=== PATIENT | female | born 1940 | race Asian ===

== ENCOUNTER 2021-08-08 15:36 | Emergency (ER) | payer OTHER ==
[~2021-08-08] VITALS: Ht 149.9 cm; Wt 40.4 kg
[2021-08-08 16:04] VITALS: BP_SYST 157
--- NOTE | 2021-08-08 16:09 | NUR ---
Patient triaged and placed in waiting room. VSS and patient appears in no acute distress at this time. Accompanied by FAMILY, awaiting available bed, and MD notified of need for MSE.
--- NOTE | 2021-08-08 16:10 | NUR ---
Dr. Gallagher to triage to assess.
--- NOTE | 2021-08-08 16:30 | NUR ---
Blood drawn per lab in [facility].
--- NOTE | 2021-08-08 16:36 | NUR ---
CT Scan completed per radiology from the lobby.
[2021-08-08 16:47] LABS: BASOPHILS % (AUTO) 0.4 % (0.0-2.0); EOSINOPHILS # (AUTO) 0.2 K/uL (0.0-0.4); EOSINOPHILS % (AUTO) 2.5 % (0.0-4.0); HEMATOCRIT 28.4 % (36-48); HEMOGLOBIN 9.8 g/dL (12.0-16.0); LYMPHOCYTES # (AUTO) 2.1 K/uL (1.0-5.5); LYMPHOCYTES % (AUTO) 23.2 % (20.5-51.5); MEAN CORPUSCULAR HEMOGLOBIN 34 pg (27-31); MEAN CORPUSCULAR HGB CONC 35 % (32-36); MEAN CORPUSCULAR VOLUME 97 fL (79.0-98.0); MONOCYTES # (AUTO) 0.5 K/uL (0.0-1.0); MONOCYTES % (AUTO) 5.8 % (1.7-9.3); NEUTROPHILS # (AUTO) 6.1 K/uL (1.8-7.7); NEUTROPHILS % (AUTO) 68.1 % (40.0-70.0); PLATELET COUNT (AUTO) 276 K/uL (130-430); RED BLOOD CELL COUNT(AUTO) 2.93 MIL/uL (4.2-6.2); RED CELL DISTRIBUTION WIDTH 14.5 % (9.0-15.0)
[2021-08-08 17:02] LABS: ANION GAP 7 (5-15); CALCIUM 9.4 mg/dL (8.4-11.0); CHLORIDE 98 mmol/L (98-107); CREATININE 1.57 mg/dL (0.55-1.30); GLUCOSE 162 mg/dL (70-99); POTASSIUM 4.6 mmol/L (3.5-5.1); SODIUM SERUM 130 mmol/L (136-145); UREA NITROGEN, BLOOD 56 mg/dL (8-21)
[2021-08-08 17:08] LABS: ALANINE AMINOTRANSFERASE 29 U/L (12-78); ALBUMIN 4.1 g/dL (3.4-4.8); ASPARTATE AMINOTRANSFERASE 19 U/L (10-37); LIPASE 497 U/L (73-393); TOTAL BILIRUBIN 0.6 mg/dL (0.0-1.0)
[2021-08-08 17:30] LABS: BILIRUBIN,URINE NEGATIVE (NEGATIVE); BLOOD, URINE NEGATIVE (NEGATIVE); CLARITY/URINE CLEAR (CLEAR); COLOR,URINE YELLOW (YELLOW); GLUCOSE,URINE NEGATIVE (NEGATIVE); KETONES,URINE NEGATIVE (NEGATIVE); LEUKOCYTE ESTERASE ,URINE TRACE (NEGATIVE); NITRITE, URINE NEGATIVE (NEGATIVE); PROTEIN URINE NEGATIVE (NEGATIVE); UROBILINOGEN,URINE 0.2 (0.2-1.0)
[2021-08-08 17:31] LABS: BACTERIA,URINE FEW /HPF (None Seen); MUCUS,URINE None Seen /LPF (None Seen); RBC,URINE NONE SEEN /HPF (0-3)
--- NOTE | 2021-08-08 18:15 | NUR ---
Pt to bed 4 for evaluation.
--- NOTE | 2021-08-08 18:20 | NUR ---
Pt AAO and ambulatory reporting chronic abdominal pain that is intermittent in nature. Pt reports that she was diagnosed with Pancreatitis yesterday and continues to feel pain. Pt reports that pain level is 8/10 on pain scale.
[2021-08-08] MEDS ORDERED: MORPHINE 4 MG INJ. 4 MG/ML VIAL IM ONE (18:30)
[2021-08-08] MEDS ORDERED: HYDR-3927 PO (18:50)
[2021-08-08] MEDS ORDERED: OMEP40CA20 PO (18:50)
[2021-08-08 19:05] VITALS: BP_SYST 157
--- NOTE | 2021-08-08 19:05 | NUR ---
Patient given written and verbal discharge instructions and verbalizes understanding. Dr. Elliott BETTENCOURT MD discussed with patient the results and treatment provided. Patient in stable condition. ID arm band removed. Rx per MD.. Patient educated on pain management and to follow up with PMD. Pain Scale 2/10. Opportunity for questions provided and answered. Medication side effect fact sheet provided.
== END 2021-08-08 19:05 | disposition home or self-care (01) ==
LOC: SED 15:36
DX: R10.13 Epigastric pain (principal); I10 Essential (primary) hypertension; E11.9 Type 2 diabetes mellitus without complications; Z88.0 Allergy status to penicillin
CPT/HCPCS: 36415; 74176; 76376; 80053; 81000; 83690; 85025; 96372; 99284; J2270

== ENCOUNTER 2021-08-18 08:56 | Observation (INO) | payer OTHER, SELFPAY ==
[~2021-08-18] VITALS: Ht 157.5 cm; Wt 36.9 kg
[~2021-08-18 08:56] MED LIST: HYDR-3927 PO; OMEP40CA20 PO
[2021-08-18 09:22] VITALS: BP_SYST 168
[2021-08-18 10:02] LABS: BASOPHILS % (AUTO) 0.3 % (0.0-2.0); EOSINOPHILS # (AUTO) 0.1 K/uL (0.0-0.4); EOSINOPHILS % (AUTO) 0.7 % (0.0-4.0); HEMATOCRIT 26.8 % (36-48); LYMPHOCYTES # (AUTO) 1.5 K/uL (1.0-5.5); LYMPHOCYTES % (AUTO) 12.7 % (20.5-51.5); MEAN CORPUSCULAR HEMOGLOBIN 33 pg (27-31); MEAN CORPUSCULAR HGB CONC 34 % (32-36); MEAN CORPUSCULAR VOLUME 99 fL (79.0-98.0); MONOCYTES # (AUTO) 0.7 K/uL (0.0-1.0); MONOCYTES % (AUTO) 5.5 % (1.7-9.3); NEUTROPHILS # (AUTO) 9.8 K/uL (1.8-7.7); NEUTROPHILS % (AUTO) 80.8 % (40.0-70.0); PLATELET COUNT (AUTO) 268 K/uL (130-430); RED BLOOD CELL COUNT(AUTO) 2.71 MIL/uL (4.2-6.2); RED CELL DISTRIBUTION WIDTH 14.7 % (9.0-15.0); WHITE BLOOD COUNT (AUTO) 12.1 K/uL (4.8-10.8)
[2021-08-18 10:16] LABS: ANION GAP 9 (5-15); CALCIUM 9.4 mg/dL (8.4-11.0); CHLORIDE 100 mmol/L (98-107); GLUCOSE 219 mg/dL (70-99); POTASSIUM 4.9 mmol/L (3.5-5.1); SODIUM SERUM 133 mmol/L (136-145); UREA NITROGEN, BLOOD 44 mg/dL (8-21)
[2021-08-18 10:21] LABS: ALANINE AMINOTRANSFERASE 21 U/L (12-78); ALBUMIN 3.7 g/dL (3.4-4.8); ASPARTATE AMINOTRANSFERASE 13 U/L (10-37); LIPASE 271 U/L (73-393); TOTAL BILIRUBIN 0.4 mg/dL (0.0-1.0)
[2021-08-18 11:34] LABS: BILIRUBIN,URINE NEGATIVE (NEGATIVE); BLOOD, URINE NEGATIVE (NEGATIVE); CLARITY/URINE CLEAR (CLEAR); COLOR,URINE YELLOW (YELLOW); GLUCOSE,URINE NEGATIVE (NEGATIVE); KETONES,URINE NEGATIVE (NEGATIVE); LEUKOCYTE ESTERASE ,URINE NEGATIVE (NEGATIVE); NITRITE, URINE NEGATIVE (NEGATIVE); PROTEIN URINE NEGATIVE (NEGATIVE); UROBILINOGEN,URINE 0.2 (0.2-1.0)
[2021-08-18] MEDS ORDERED: ASPIRIN 325 MG TABLET PO ONE (13:15)
[2021-08-18] MEDS ORDERED: HYDROcodone/ACETAMIN 5-325 MG TAB (NORCO/ VICODIN) PO PRN (13:30)
[2021-08-18] MEDS ORDERED: LORazepam 2 MG/ML VIAL IVP PRN (13:30)
[2021-08-18] MEDS ORDERED: ACETAMINOPHEN 325 MG TABLET PO PRN (13:30)
[2021-08-18] MEDS ORDERED: ONDANSETRON HCL 4 MG/2 ML VIAL IVP PRN (13:30)
[2021-08-18] MEDS ORDERED: NALOXONE HCL 0.4 MG/ML AMP (NARCAN) IVP PRN ×2 (13:30)
[2021-08-18] MEDS ORDERED: NORMAL SALINE 5 ML DISP.SYRIN IVF SCH (14:00)
[2021-08-18] MEDS ORDERED: CARV3.1246 PO (17:41)
[2021-08-18] MEDS ORDERED: LOSA100T3 PO (17:41)
[2021-08-18] MEDS ORDERED: CLOP300T14 PO (17:41)
[2021-08-18 18:10] VITALS: BP_SYST 112
[2021-08-18] MEDS: HYDROcodone/ACETAMIN 10-325 MG TAB PO PRN (21:02)
[2021-08-18] MEDS: NORMAL SALINE 5 ML DISP.SYRIN IVF SCH (21:03)
[2021-08-18 21:29] VITALS: BP_SYST 144
[2021-08-18 22:44] LABS: THYROID STIMULATING HORMONE 0.78 uIu/mL (0.36-3.74)
[2021-08-18 23:34] LABS: CHOLESTEROL 125 mg/dL (<200); HDL CHOLESTEROL 61 mg/dL (>55); LDL CHOLESTEROL 50 mg/dL (<100); TRIGLYCERIDES 110 mg/dL (30-150)
[2021-08-19 00:39] VITALS: BP_SYST 137
[2021-08-19] MEDS: NORMAL SALINE 5 ML DISP.SYRIN IVF SCH (05:56)
[2021-08-19 06:31] LABS: BASOPHILS % (AUTO) 0.2 % (0.0-2.0); EOSINOPHILS # (AUTO) 0.2 K/uL (0.0-0.4); EOSINOPHILS % (AUTO) 1.4 % (0.0-4.0); HEMATOCRIT 29.5 % (36-48); HEMOGLOBIN 9.8 g/dL (12.0-16.0); LYMPHOCYTES # (AUTO) 1.4 K/uL (1.0-5.5); LYMPHOCYTES % (AUTO) 11.6 % (20.5-51.5); MEAN CORPUSCULAR HEMOGLOBIN 33 pg (27-31); MEAN CORPUSCULAR HGB CONC 33 % (32-36); MEAN CORPUSCULAR VOLUME 99 fL (79.0-98.0); MONOCYTES # (AUTO) 0.9 K/uL (0.0-1.0); MONOCYTES % (AUTO) 7.2 % (1.7-9.3); NEUTROPHILS # (AUTO) 9.8 K/uL (1.8-7.7); NEUTROPHILS % (AUTO) 79.6 % (40.0-70.0); PLATELET COUNT (AUTO) 299 K/uL (130-430); RED BLOOD CELL COUNT(AUTO) 2.99 MIL/uL (4.2-6.2); RED CELL DISTRIBUTION WIDTH 14.6 % (9.0-15.0); WHITE BLOOD COUNT (AUTO) 12.3 K/uL (4.8-10.8)
[2021-08-19 08:00] VITALS: BP_SYST 99
[2021-08-19 08:09] LABS: ANION GAP 6 (5-15); CALCIUM 9.5 mg/dL (8.4-11.0); CHLORIDE 104 mmol/L (98-107); CREATININE 1.27 mg/dL (0.55-1.30); GLUCOSE 125 mg/dL (70-99); PHOSPHORUS 4.2 mg/dL (2.7-4.5); POTASSIUM 4.2 mmol/L (3.5-5.1); SODIUM SERUM 135 mmol/L (136-145); UREA NITROGEN, BLOOD 35 mg/dL (8-21)
[2021-08-19] MEDS ORDERED: PANTOPRAZOLE SODIUM 40 MG TAB PO SCH (09:00)
[2021-08-19] MEDS ORDERED: OMEPRAZOLE Non-Formulary 20 MG CAPSULE.DR PO SCH (09:00)
[2021-08-19] MEDS: HYDROcodone/ACETAMIN 10-325 MG TAB PO PRN (09:49)
[2021-08-19 11:23] VITALS: BP_SYST 98
[2021-08-19 13:16] VITALS: BP_SYST 109
== END 2021-08-19 11:50 | disposition home or self-care (01) ==
LOC: SED 08:56 → STU 11:34
PROVIDERS: ADMIT Preventive Medicine Preventive Medicine/Occupational Environmental Medicine; ATTEND Preventive Medicine Preventive Medicine/Occupational Environmental Medicine
DX: R07.89 Other chest pain (principal); Z20.822 Contact with and (suspected) exposure to COVID-19; R10.9 Unspecified abdominal pain; D72.829 Elevated white blood cell count, unspecified; E87.1 Hypo-osmolality and hyponatremia; N17.9 Acute kidney failure, unspecified; I49.3 Ventricular premature depolarization; I12.9 Hypertensive chronic kidney disease with stage 1 through stage 4 chronic kidney disease, or unspecified chronic kidney disease; E11.22 Type 2 diabetes mellitus with diabetic chronic kidney disease; N18.9 Chronic kidney disease, unspecified; D63.1 Anemia in chronic kidney disease; E11.65 Type 2 diabetes mellitus with hyperglycemia; E11.21 Type 2 diabetes mellitus with diabetic nephropathy; K21.9 Gastro-esophageal reflux disease without esophagitis; G89.29 Other chronic pain; I25.10 Atherosclerotic heart disease of native coronary artery without angina pectoris; I25.2 Old myocardial infarction; Z95.5 Presence of coronary angioplasty implant and graft; Z88.0 Allergy status to penicillin; Z79.899 Other long term (current) drug therapy
CPT/HCPCS: 36415; 71045; 80048; 80053; 80061; 81003; 83690; 83735; 84100; 84443; 84484; 85025; 93005; 93306; 99285; G0378

== ENCOUNTER 2023-12-02 16:27 | Emergency (ER) | payer OTHER ==
[~2023-12-02] VITALS: Ht 152.4 cm; Wt 39.9 kg
[~2023-12-02 16:27] MED LIST changes: +CARV3.1246 PO; +CLOP300T14 PO; +FLUORESCEIN SODIUM 1 MG OPHTHALMIC STRIP OP ONE; +LOSA-415 PO; +PROPARACAINE (OPTHANINE 0.5%) 15 ML DROPS OP ONE
[2023-12-02 16:30] VITALS: BP_SYST 119; PULSE 104; RESP 18; TEMP 98.4; O2SAT 100
[2023-12-02 19:28] VITALS: BP_SYST 148; PULSE 78; RESP 19; TEMP 98.1; O2SAT 100
== END 2023-12-02 19:25 | disposition home or self-care (01) ==
LOC: SED 16:27
DX: B02.9 Zoster without complications (principal); E11.9 Type 2 diabetes mellitus without complications; I10 Essential (primary) hypertension; Z88.0 Allergy status to penicillin; Z79.899 Other long term (current) drug therapy
CPT/HCPCS: 99282